=== PATIENT | male | born 2000 | race Caucasian/White ===

== ENCOUNTER → 2025-06-18 06:37 | Outpatient (CLI) | payer OTHER, SELFPAY ==
--- NOTE | 2025-06-18 | DI.CT.S_ITS ---
PROCEDURE: CT WRIST RIGHT WITHOUT CON INDICATIONS: Navicular fracture TECHNIQUE: Noncontrast 1 mm axial sections acquired through the carpal bones, with coronal and sagittal reformats. COMPARISON: None. FINDINGS: Scaphoid waist fracture with medullary lucent gap approximately 3 mm which may be due to bony remodeling or cystic changes as the cortex appears aligned. Relative sclerotic change in the proximal pole. Normal carpal alignment. Cast in place. No effusion. No soft tissue swelling. IMPRESSION: Incompletely healed scaphoid waist fracture. No osseous bridging. Dictated by: Shaw Desai M.D. on 06/18/2025 at 7:49 Approved by: Shaw Desai M.D. on 06/18/2025 at 7:54
== END ==
PROVIDERS: Visit Provider Student in an Organized Health Care Education/Training Program
DX: S62.021G Displaced fracture of middle third of navicular [scaphoid] bone of right wrist, subsequent encounter for fracture with delayed healing (principal)
CPT/HCPCS: 73200

== ENCOUNTER → 2025-09-01 06:28 | Outpatient (CLI) | payer OTHER, SELFPAY ==
--- NOTE | 2025-09-01 06:29 | DI.CT.S_ITS ---
PROCEDURE: CT WRIST RIGHT WITHOUT CON INDICATIONS: Right wrist scaphoid fracture. TECHNIQUE: Noncontrast 1 mm axial sections acquired through the carpal bones, with coronal and sagittal reformats. COMPARISON: [facility], CT, CT WRIST RIGHT WITHOUT CON, 06/18/2025, 7:05. FINDINGS: Image quality: Excellent. Bones: Screw fixation a healed scaphoid waist fracture. No definite fracture line is visible. No hardware complication. Joint spaces are well maintained. Bone harvesting site is seen in the distal radius. Soft tissues: The visualized tendons are grossly intact. IMPRESSION: Screw fixation of a healed scaphoid waist fracture. No hardware complication. Dictated by: Elenita Hinojosa M.D. on 09/01/2025 at 10:44 Approved by: Elenita Hinojosa M.D. on 09/01/2025 at 10:48
== END ==
LOC: CT 06:28
PROVIDERS: Referring Provider Student in an Organized Health Care Education/Training Program; Visit Provider Student in an Organized Health Care Education/Training Program
DX: Z47.89 Encounter for other orthopedic aftercare (principal)
CPT/HCPCS: 73200